=== PATIENT | male | born 1930 | race Caucasian/White ===

== ENCOUNTER 2017-09-24 12:24 | Emergency (ER) | payer OTHER ==
[2017-09-24] MEDS ORDERED: NA CHLORIDE 0.9% 1,000 ML ONE (14:14)
[2017-09-24 14:32] LABS: Absolute Lymphocytes (CBC) 0.8 K/uL (0.7-4.9); Absolute Monocytes 1.2 K/uL (0.1-1.3); Basophils % 0.4 % (0-1.3); Eosinophils % 0.6 % (0-4.4); Hematocrit 41.8 % (39.6-49.0); Lymphocytes % 5.7 % (15.3-44.8); MCH 31.5 pg (27.0-35.0); MPV 10.1 fL (7.6-11.3); Monocytes % 8.7 % (3.3-12.3); RBC Red Blood Cell Count 4.39 M/uL (4.33-5.43)
[2017-09-24 14:47] LABS: Potassium 3.7 mEq/L (3.6-5.0)
[2017-09-24] MEDS ORDERED: CEFTRIAXONE/SWI 1gm 1 GM/10 ML SYR ONE (16:14)
[2017-09-24 16:37] LABS: Urine Blood 2+ (NEG); Urine Glucose NEGATIVE (NEG); Urine Protein 2+ (NEG); Urine Specific Gravity >1.030 (1.005-1.030)
[2017-09-24 16:39] LABS: Urine Culture Reflex Order REFLEXED
[2017-09-24 16:40] LABS: Urine Bacteria >50 /HPF (NONE SEEN)
[2017-09-24 16:41] LABS: Urine RBC <5 /HPF (NONE SEEN)
--- NOTE | 2017-09-24 17:08 | EDPHYS ---
Physician Documentation [facility] Name: Jacob Houston Age: 87 yrs Sex: Male : 1930 Arrival Date: 09/24/2017 Time: 12:29 Bed 30 Private MD: ED Physician Sudheer Carreno HPI: 09/24 18:01 This 87 yrs old Male presents to ER via Ambulatory with complaints of Dysuria.gs 18:01 The patient presents with urinary symptoms, dysuria, hesitancy to initiate urine gs stream. Onset: The symptoms/episode began/occurred gradually, 4 day(s) ago. Modifying factors: The symptoms are alleviated by nothing. Associated signs and symptoms: Pertinent negatives: fever, hematuria. Severity of symptoms: At their worst the symptoms were moderate, in the emergency department the symptoms are unchanged. The patient has not experienced similar symptoms in the past. 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 - Social history:: Smoking status: Patient/guardian denies using tobacco. ROS: 18:01 All other systems are negative. gs Exam: 18:01 Head/Face: Normocephalic, atraumatic. Eyes: Pupils equal round and reactive to light, gs extra-ocular motions intact. Lids and lashes normal. Conjunctiva and sclera are non-icteric and not injected. Cornea within normal limits. Periorbital areas with no swelling, redness, or edema. ENT: Nares patent. No nasal discharge, no septal abnormalities noted. Tympanic membranes are normal and external auditory canals are clear. Oropharynx with no redness, swelling, or masses, exudates, or evidence of obstruction, uvula midline. Mucous membranes moist. Neck: Trachea midline, no thyromegaly or masses palpated, and no cervical lymphadenopathy. Supple, full range of motion without nuchal rigidity, or vertebral point tenderness. No Meningismus. Chest/axilla: Normal chest wall appearance and motion. Nontender with no deformity. No lesions are appreciated. Cardiovascular: Regular rate and rhythm with a normal S1 and S2. No gallops, murmurs, or rubs. Normal PMI, no JVD. No pulse deficits. Respiratory: Lungs have equal breath sounds bilaterally, clear to auscultation and percussion. No rales, rhonchi or wheezes noted. No increased work of breathing, no retractions or nasal flaring. Abdomen/GI: Soft, non-tender, with normal bowel sounds. No distension or tympany. No guarding or rebound. No evidence of tenderness throughout. Back: No spinal tenderness. No costovertebral tenderness. Full range of motion. Skin: Warm, dry with normal turgor. Normal color with no rashes, no lesions, and no evidence of cellulitis. MS/ Extremity: Pulses equal, no cyanosis. Neurovascular intact. Full, normal range of motion. Neuro: Awake and alert, GCS 15, oriented to person, place, time, and situation. Cranial nerves II-XII grossly intact. Motor strength 5/5 in all extremities. Sensory grossly intact. Cerebellar exam normal. Normal gait. 18:01 Constitutional: The patient appears alert, awake. Vital Signs: 12:52 BP 120 / 57; Pulse 61; Resp 15; Temp 98.3(TE); Pulse Ox 96% ; Weight 72.57 kg (R); lk1 Height 5 ft. 10 in. (177.80 cm) (R); Pain 6/10; 14:28 BP 132 / 56; Pulse 65; Resp 18; Pulse Ox 99% ; tl3 16:28 BP 135 / 67; Pulse 70; Resp 18; Pulse Ox 100% on R/A; tl3 17:44 BP 138 / 76; Pulse 68; Resp 16; Pulse Ox 99% on R/A; tl3 12:52 Body Mass Index 22.96 (72.57 kg, 177.80 cm) lk1 MDM: 14:07 Patient medically screened. 18:01 Differential diagnosis: nonspecific abdominal pain, UTI, urinary retention. Data reviewed: vital signs, nurses notes. Response to treatment: the patient's symptoms have markedly improved after treatment, and as a result, I will discharge patient. 09/24 14:05 Order name: CBC with Diff; Complete Time: 15:57 09/24 14:05 Order name: Basic Metabolic Panel; Complete Time: 15:57 09/24 14:05 Order name: Urine Microscopic Only; Complete Time: 17:07 gs 09/24 15:12 Order name: Urine Dipstick--Ancillary (enter results); Complete Time: 17:07 bd 09/24 16:42 Order name: Urine Culture [facility] 09/24 14:05 Order name: Urine Dipstick-Ancillary (obtain specimen); Complete Time: 16:11 Administered Medications: 14:16 Drug: NS 0.9% 1000 ml Route: IV; Rate: 1 bolus; Site: right forearm; Delivery: Primary tl3 tubing; 15:15 Follow up: IV Status: Completed infusion; IV Intake: 1000ml tl3 16:23 Drug: Rocephin - (cefTRIAXone) 1 grams {Note: IVP.} Route: IVPB; Infused Over: 5 mins; tl3 Site: right forearm; 16:23 Follow up: Response: No adverse reaction tl3 Disposition: 09/24/17 17:07 Discharged to Home. Impression: Cystitis. - Condition is Stable. - Discharge Instructions: Urinary Tract Infection. - Prescriptions for cefpodoxime 200 mg Oral Tablet - take 1 tablet by ORAL route every 12 hours with food; 14 tablet. - Medication Reconciliation Form, Thank You Letter, Antibiotic Education, Prescription Opioid Use form. - Follow up: Private Physician; When: 2 - 3 days; Reason: Re-evaluation by your physician. Signatures: Dispatcher [employer] Chichi Bey RN RN lk1 Sudheer Carreno MD MD gs Lowrey, Tammy, RN RN tl3 Corrections: (The following items were deleted from the chart) 17:53 17:07 09/24/2017 17:07 Discharged to Home. Impression: Cystitis. Condition is Stable. tl3 Forms are Medication Reconciliation Form, Thank You Letter, Antibiotic Education, Prescription Opioid Use. Follow up: Private Physician; When: 2 - 3 days; Reason: Re-evaluation by your physician. gs
--- NOTE | 2017-09-24 17:08 | ER ---
Nurse's Notes [facility] Emergency Department Name: Jacob Houston Age: 87 yrs Sex: Male : 1930 Arrival Date: 09/24/2017 Time: 12:29 Bed 30 Private MD: Diagnosis: Cystitis Presentation: 09/24 12:49 Presenting complaint: Patient states: It hurts bad for me to pee. It started about 3-4 lk1 days ago. Transition of care: patient was not received from another setting of care. Onset of symptoms was September 21, 2017. Initial Sepsis Screen: Does the patient have a suspected source of infection?. Care prior to arrival: None. 12:49 Method Of Arrival: Ambulatory lk1 12:49 Acuity: SHANTE 3 lk1 17:44 Initial Sepsis Screen: Does the patient meet any 2 criteria? No. Patient's initial tl3 sepsis screen is negative. Triage Assessment: 12:51 General: Appears in no apparent distress. Behavior is calm, cooperative, appropriate lk1 for age. Pain: Complains of pain in suprapubic area Pain currently is 6 out of 10 on a pain scale. : Reports burning with urination, inability to void, pain. 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 - Social history:: Smoking status: Patient/guardian denies using tobacco. Screenin:20 Abuse screen: Denies threats or abuse. Nutritional screening: No deficits noted. tl3 Tuberculosis screening: No symptoms or risk factors identified. Fall Risk None identified. Assessment: 13:20 General: Appears in no apparent distress. comfortable, slender, well groomed, well tl3 developed, well nourished, Behavior is calm, cooperative, appropriate for age. Pain: Complains of pain in abdomen and suprapubic area Pain currently is 6 out of 10 on a pain scale. Neuro: Level of Consciousness is awake, alert, obeys commands, Oriented to person, place, time, situation, Appropriate for age. Cardiovascular: Heart tones S1 S2 present. Cardiovascular: Patient's skin is warm and dry. Respiratory: Airway is patent Trachea midline Respiratory effort is even, unlabored, Respiratory pattern is regular, symmetrical. GI: No signs and/or symptoms were reported involving the gastrointestinal system. : Reports inability to void, since last 4 or 5 days very little urine output. EENT: No signs and/or symptoms were reported regarding the EENT system. Derm: No signs and/or symptoms reported regarding the dermatologic system. Musculoskeletal: No signs and/or symptoms reported regarding the musculoskeletal system. 14:30 Reassessment: Patient appears in no apparent distress at this time. No changes from tl3 previously documented assessment. Patient and/or family updated on plan of care and expected duration. Pain level reassessed. Patient is alert, oriented x 3, equal unlabored respirations, skin warm/dry/pink. family at bedside. 16:28 Reassessment: Patient appears in no apparent distress at this time. No changes from tl3 previously documented assessment. Patient and/or family updated on plan of care and expected duration. Pain level reassessed. Patient is alert, oriented x 3, equal unlabored respirations, skin warm/dry/pink. pt resting in bed, Antibiotics administered without complications, awaitiing the umic results, lab called it should be ready in 10 minutes. 17:41 Reassessment: Patient appears in no apparent distress at this time. No changes from tl3 previously documented assessment. Patient and/or family updated on plan of care and expected duration. Pain level reassessed. Patient is alert, oriented x 3, equal unlabored respirations, skin warm/dry/pink. Vital Signs: 12:52 BP 120 / 57; Pulse 61; Resp 15; Temp 98.3(TE); Pulse Ox 96% ; Weight 72.57 kg (R); lk1 Height 5 ft. 10 in. (177.80 cm) (R); Pain 6/10; 14:28 BP 132 / 56; Pulse 65; Resp 18; Pulse Ox 99% ; tl3 16:28 BP 135 / 67; Pulse 70; Resp 18; Pulse Ox 100% on R/A; tl3 17:44 BP 138 / 76; Pulse 68; Resp 16; Pulse Ox 99% on R/A; tl3 12:52 Body Mass Index 22.96 (72.57 kg, 177.80 cm) 1 ED Course: 12:29 Patient arrived in ED. sb2 12:50 Triage completed. lk1 12:54 Arm band placed on right wrist. lk1 13:13 Ynes Hernandez, RN is Primary Nurse. tl3 13:20 Resting quietly. Awaiting ED provider evaluation. tl3 13:20 Patient has correct armband on for positive identification. Placed in gown. Bed in low tl3 position. Call light in reach. Side rails up X 1. Adult w/ patient. Pulse ox on. NIBP on. Door closed. Lights dimmed. Warm blanket given. 13:20 No provider procedures requiring assistance completed. Bladder scan completed. 87 mls. tl3 13:24 Sudheer Carreno MD is Attending Physician. 13:40 Inserted saline lock: 20 gauge in right forearm, using aseptic technique. Blood tl3 collected. 17:43 intact, bleeding controlled, No redness/swelling at site. Pressure dressing applied. tl3 Administered Medications: 14:16 Drug: NS 0.9% 1000 ml Route: IV; Rate: 1 bolus; Site: right forearm; Delivery: Primary tl3 tubing; 15:15 Follow up: IV Status: Completed infusion; IV Intake: 1000ml tl3 16:23 Drug: Rocephin - (cefTRIAXone) 1 grams {Note: IVP.} Route: IVPB; Infused Over: 5 mins; tl3 Site: right forearm; 16:23 Follow up: Response: No adverse reaction tl3 Intake: 15:15 IV: 1000ml; Total: 1000ml. tl3 Outcome: 17:07 Discharge ordered by . 17:43 Discharged to home ambulatory. tl3 17:43 Condition: stable 17:43 Discharge instructions given to patient, family, Instructed on discharge instructions, follow up and referral plans. medication usage, Demonstrated understanding of instructions, follow-up care, medications, Prescriptions given X 1. 17:53 Patient left the ED. tl3 Addendum: 09/28/2017 16:09 Addendum: Culture Results: Positive urine culture. No further action required. Bacteria i w sensitive to prescribed antibiotic. Signatures: Irene Everett, RN Chichi Ledezma RN RN lk1 Sudheer Carreno MD MD Rox Umana 2 Ynes Hernandez, RN RN tl3 Corrections: (The following items were deleted from the chart) 09/24 17:52 17:41 BP 148 / 118; Pulse 99bpm; Resp 20bpm; Pulse Ox 92% 2 lpm Nasal Cannula; tl3 tl3
[2017-09-24 17:56] VITALS: TEMP 98.3
[2017-09-24 18:00] VITALS: BP 138/76; O2SAT 99
== END 2017-09-24 17:53 | disposition home or self-care (01) ==
LOC: ER 12:24
DX: N30.90 Cystitis, unspecified without hematuria (principal)
CPT/HCPCS: 36415; 80048; 85025; 87077 ×2; 87086; 87088; 87186 ×2; 96361; 96374; 99284; J0696; J7030; 81003; 81015

== ENCOUNTER 2017-11-04 11:01 | Emergency (ER) | payer OTHER ==
[2017-11-04] MEDS ORDERED: NA CHLORIDE 0.9% 500 ML ONE (11:41)
[2017-11-04 12:37] LABS: Absolute Lymphocytes (CBC) 1.1 K/uL (0.7-4.9); Absolute Monocytes 1.2 K/uL (0.1-1.3); Absolute Neutrophil 9.4 K/uL (1.8-8.0); Basophils % 0.5 % (0-1.3); Eosinophils % 1.5 % (0-4.4); MCV 95.2 fL (80-100); MPV 8.7 fL (7.6-11.3); Monocytes % 10.2 % (3.3-12.3); RBC Red Blood Cell Count 3.88 M/uL (4.33-5.43)
[2017-11-04 12:58] LABS: BUN Blood Urea Nitrogen 15 mg/dL (7-18); Bicarbonate 26 mmol/L (21-32); Glucose Level 85 mg/dL (74-106); Potassium 3.8 mmol/L (3.5-5.1); Sodium Level 140 mmol/L (136-145)
--- NOTE | 2017-11-04 13:15 | RAD REPORT ---
EXAM DESCRIPTION: US - Scrotum Testicles - 11/04/2017 12:13 pm CLINICAL HISTORY: Scrotal pain and swelling Preliminary findings provided at the time of the study. COMPARISON: None. FINDINGS: Right testicle is 4.5 x 2.5 x 2.5 cm. Volume is 14.6 milliliters. Left testicle is 3.3 x 2 .4 x 2.6 cm. Volume is 10.6 milliliters. No intratesticular abnormalities identified. Doppler evaluation shows a normal intratesticular blood flow pattern. Left epididymis is enlarged. There are numerous serpiginous prominent veins superior an d posterior to the left testicle. These veins show increased diameter and blood flow during Valsalva maneuver. No varicocele seen on the right. No hydrocele or hernia changes. IMPRESSION: Large left varicocele.
--- NOTE | 2017-11-04 14:38 | RAD REPORT ---
EXAM DESCRIPTION: US - Renal Ultrasound-Complete - 11/04/2017 2:19 pm CLINICAL HISTORY: . Abdominal pain COMPARISON: September 2016 cat scan FINDINGS: The right kidney measures 10 cm with a normal echotexture. The left kidney measures 10 cm with a normal echotexture. Hydronephrosis is not seen. A renal mass is not visualized. The bladder wall is thickened. The bladder is not well evaluated as it is incompletely distended .The patient has an enlarged prostate gland. A small amount of ascites is present IMPRESSION: Unremarkable renal ultrasound.
--- NOTE | 2017-11-04 14:42 | ER ---
Nurse's Notes [facility] Name: Jacob Houston Age: 87 yrs Sex: Male : 1930 Arrival Date: 11/04/2017 Time: 11:05 Bed 16 Private MD: Shauna Shafer F Diagnosis: Epididymitis;Scrotal varices;Enlarged prostate Presentation: 11/04 11:21 Presenting complaint: Patient states: "I woke up this morning and one of my balls is lk1 double the size it was yesterday.". Transition of care: patient was not received from another setting of care. Onset of symptoms was November 04, 2017 at 08:00. Risk Assessment: Do you want to hurt yourself or someone else? Patient reports no desire to harm self or others. Initial Sepsis Screen: Does the patient meet any 2 criteria? No. Patient's initial sepsis screen is negative. Does the patient have a suspected source of infection? No. Patient's initial sepsis screen is negative. Care prior to arrival: None. 11:21 Method Of Arrival: Ambulatory lk 11:21 Acuity: SHANTE 3 lk1 Historical: - Allergies: 11:22 No Known Allergies; lk1 - Home Meds: 11:24 Xarelto 20 mg Oral tab once daily [Active]; hj - PMHx: 11:22 DVT; lk1 - PSHx: 11:22 Appendectomy; cyst removal from elbow; Cholecystectomy; lk1 - Immunization history:: Adult Immunizations up to date. - Social history:: Smoking status: Patient/guardian denies using tobacco. - Ebola Screening: : Patient negative for fever greater than or equal to 101.5 degrees Fahrenheit, and additional compatible Ebola Virus Disease symptoms Patient denies exposure to infectious person Patient denies travel to an Ebola-affected area in the 21 days before illness onset No symptoms or risks identified at this time. - Family history:: not pertinent. - Hospitalizations: : No recent hospitalization is reported. - History obtained from: . Screenin:23 Abuse screen: Denies threats or abuse. Denies injuries from another. Nutritional hj screening: No deficits noted. Tuberculosis screening: No symptoms or risk factors identified. Fall Risk None identified. Assessment: 11:22 General: Appears in no apparent distress. uncomfortable, Behavior is calm, cooperative, hj appropriate for age. Pain: Complains of pain in pelvis. Neuro: Level of Consciousness is awake, alert, obeys commands, Oriented to person, place, time, situation, Appropriate for age. Cardiovascular: Capillary refill < 3 seconds Patient's skin is warm and dry. Respiratory: Airway is patent Respiratory effort is even, unlabored, Respiratory pattern is regular, symmetrical. GI: No signs and/or symptoms were reported involving the gastrointestinal system. : No signs and/or symptoms were reported regarding the genitourinary system. EENT: No signs and/or symptoms were reported regarding the EENT system. Derm: Reports testicular swelling. Musculoskeletal: No signs and/or symptoms reported regarding the musculoskeletal system. 11:35 Reassessment: wheeled to US;. hj 12:00 Reassessment: back from Us;. hj 12:30 Reassessment: Patient and/or family updated on plan of care and expected duration. Pain hj level reassessed. Patient is alert, oriented x 3, equal unlabored respirations, skin warm/dry/pink. awaiting resuls;. 13:50 Reassessment: Patient and/or family updated on plan of care and expected duration. Pain hj level reassessed. Patient is alert, oriented x 3, equal unlabored respirations, skin warm/dry/pink. RP US done;. 14:44 Reassessment: Patient and/or family updated on plan of care and expected duration. Pain hj level reassessed. Patient is alert, oriented x 3, equal unlabored respirations, skin warm/dry/pink. for D/C;l. Vital Signs: 11:22 BP 136 / 56; Pulse 62; Resp 15; Temp 99.2(TE); Pulse Ox 95% on R/A; Weight 72.57 kg lk1 (R); Height 5 ft. 11 in. (180.34 cm) (R); Pain 5/10; 11:31 BP 123 / 61; Pulse 60; Resp 18; Pulse Ox 96% on R/A; hj 12:30 BP 138 / 60; Pulse 67; Resp 18; Pulse Ox 99% ; hj 13:50 BP 140 / 60; Pulse 69; Resp 18; Pulse Ox 100% on R/A; hj 14:44 BP 136 / 62; Pulse 71; Resp 18; Pulse Ox 100% on R/A; hj 11:22 Body Mass Index 22.32 (72.57 kg, 180.34 cm) lk1 ED Course: 11:05 Patient arrived in ED. mr 11:05 Shauna Shafer MD is Private Physician. mr 11:13 Kemal Marion, RN is Primary Nurse. hj 11:22 Triage completed. lk1 11:23 Arm band placed on left wrist. lk1 11:23 Patient has correct armband on for positive identification. Placed in gown. Bed in low hj position. Call light in reach. Side rails up X 1. Adult w/ patient. 11:29 Aleja Berrios FNP is PHCP. kav 11:29 Vadim Dumont MD is Attending Physician. kav 11:51 US Scrotum Testicles: left testicular swelling and erythema x 1 day In Process EDMS Unspecified. 12:31 Initial lab(s) drawn, by in, sent to lab. Inserted saline lock: 20 gauge in left dh3 antecubital area, using aseptic technique. Blood collected. 14:02 US Rp Exam Complete In Process Unspecified. EDMS 14:03 Ultrasound completed. Patient tolerated well. aa4 14:41 Shauna Shafer MD is Referral Physician. kav 14:43 Demetrius Alexander MD is Referral Physician. kav 14:45 No provider procedures requiring assistance completed. IV discontinued, intact, hj bleeding controlled, No redness/swelling at site. Pressure dressing applied. Administered Medications: 12:31 Drug: NS 0.9% 500 ml Route: IV; Rate: bolus; Site: left antecubital; hj 14:44 Follow up: IV Status: Completed infusion hj Outcome: 14:42 Discharge ordered by . kav 14:45 Discharged to home ambulatory, with family. hj 14:45 Condition: stable 14:45 Discharge instructions given to patient, family, Instructed on discharge instructions, follow up and referral plans. medication usage, Demonstrated understanding of instructions, follow-up care, medications, Prescriptions given X 1. 14:56 Patient left the ED. hj Signatures: Dispatcher [employer] EDMS Aleja Berrios FNP SENIOR STATISTICIANYuni Sher mr Mars Amanda aa4 Kemal Marion RN RN hj Kluge, Leah, RN RN lk Yoana Ardon [facility]
--- NOTE | 2017-11-04 14:42 | EDPHYS ---
Physician Documentation [facility] Name: Jacob Houston Age: 87 yrs Sex: Male : 1930 Arrival Date: 11/04/2017 Time: 11:05 Bed 16 Private MD: Shauna Shafer F ED Physician Vadim Dumont HPI: 11/04 11:32 This 87 yrs old Male presents to ER via Ambulatory with complaints of Penile kav Problem. 11:49 The patient presents with tenderness, that is mild, left testicle. Onset: The kav symptoms/episode began/occurred acutely, last night. Modifying factors: The symptoms are alleviated by remaining still, the symptoms are aggravated by movement, pressure. Associated signs and symptoms: Pertinent negatives: abdominal pain, dysuria, hematuria, nausea, vomiting. Severity of symptoms: At their worst the symptoms were moderate, just prior to arrival. The patient has not experienced similar symptoms in the past. The patient has not recently seen a physician. 13:41 Review of old medical record from 09/24/17 shows patient seen in this ED with similar kav c/o's and was diagnosed with a CystitisI and RX: Cefpodoxime 200 mg bid x 7 days. Historical: - Allergies: 11:22 No Known Allergies; lk1 - Home Meds: 11:24 Xarelto 20 mg Oral tab once daily [Active]; hj - PMHx: 11:22 DVT; lk1 - PSHx: 11:22 Appendectomy; cyst removal from elbow; Cholecystectomy; lk1 - Immunization history:: Adult Immunizations up to date. - Social history:: Smoking status: Patient/guardian denies using tobacco. - Ebola Screening: : Patient negative for fever greater than or equal to 101.5 degrees Fahrenheit, and additional compatible Ebola Virus Disease symptoms Patient denies exposure to infectious person Patient denies travel to an Ebola-affected area in the 21 days before illness onset No symptoms or risks identified at this time. - Family history:: not pertinent. - Hospitalizations: : No recent hospitalization is reported. - History obtained from: . ROS: 11:51 Constitutional: Negative for fever, chills, and weight loss, Eyes: Negative for injury, kav pain, redness, and discharge, ENT: Negative for injury, pain, and discharge, Neck: Negative for injury, pain, and swelling, Cardiovascular: Negative for chest pain, palpitations, and edema, Respiratory: Negative for shortness of breath, cough, wheezing, and pleuritic chest pain, Abdomen/GI: Negative for abdominal pain, nausea, vomiting, diarrhea, and constipation, Back: Negative for injury and pain, MS/Extremity: Negative for injury and deformity, Skin: Negative for injury, rash, and discoloration, Neuro: Negative for headache, weakness, numbness, tingling, and seizure, Psych: Negative for depression, anxiety, suicide ideation, homicidal ideation, and hallucinations, Allergy/Immunology: Negative for hives, rash, and allergies, Endocrine: Negative for neck swelling, polydipsia, polyuria, polyphagia, and marked weight changes, Hematologic/Lymphatic: Negative for swollen nodes, abnormal bleeding, and unusual bruising. 11:51 : Positive for testicular pain Left testicle, Negative for injury or acute deformity, urinary symptoms. Exam: 11:51 Constitutional: This is a well developed, well nourished patient who is awake, alert, kav and in no acute distress. Head/Face: Normocephalic, atraumatic. Eyes: Pupils equal round and reactive to light, extra-ocular motions intact. Lids and lashes normal. Conjunctiva and sclera are non-icteric and not injected. Cornea within normal limits. Periorbital areas with no swelling, redness, or edema. ENT: Nares patent. No nasal discharge, no septal abnormalities noted. Tympanic membranes are normal and external auditory canals are clear. Oropharynx with no redness, swelling, or masses, exudates, or evidence of obstruction, uvula midline. Mucous membranes moist. Neck: Trachea midline, no thyromegaly or masses palpated, and no cervical lymphadenopathy. Supple, full range of motion without nuchal rigidity, or vertebral point tenderness. No Meningismus. Chest/axilla: Normal chest wall appearance and motion. Nontender with no deformity. No lesions are appreciated. Cardiovascular: Regular rate and rhythm with a normal S1 and S2. No gallops, murmurs, or rubs. Normal PMI, no JVD. No pulse deficits. Respiratory: Lungs have equal breath sounds bilaterally, clear to auscultation and percussion. No rales, rhonchi or wheezes noted. No increased work of breathing, no retractions or nasal flaring. Abdomen/GI: Soft, non-tender, with normal bowel sounds. No distension or tympany. No guarding or rebound. No evidence of tenderness throughout. Back: No spinal tenderness. No costovertebral tenderness. Full range of motion. Skin: Warm, dry with normal turgor. Normal color with no rashes, no lesions, and no evidence of cellulitis. MS/ Extremity: Pulses equal, no cyanosis. Neurovascular intact. Full, normal range of motion. Neuro: Awake and alert, GCS 15, oriented to person, place, time, and situation. Cranial nerves II-XII grossly intact. Motor strength 5/5 in all extremities. Sensory grossly intact. Cerebellar exam normal. Normal gait. Psych: Awake, alert, with orientation to person, place and time. Behavior, mood, and affect are within normal limits. 11:51 : Male external genitalia: swelling, of the left testicle is noted, tenderness, of the left testicle is noted, that is moderate. Vital Signs: 11:22 BP 136 / 56; Pulse 62; Resp 15; Temp 99.2(TE); Pulse Ox 95% on R/A; Weight 72.57 kg lk1 (R); Height 5 ft. 11 in. (180.34 cm) (R); Pain 5/10; 11:31 BP 123 / 61; Pulse 60; Resp 18; Pulse Ox 96% on R/A; hj 12:30 BP 138 / 60; Pulse 67; Resp 18; Pulse Ox 99% ; hj 13:50 BP 140 / 60; Pulse 69; Resp 18; Pulse Ox 100% on R/A; hj 14:44 BP 136 / 62; Pulse 71; Resp 18; Pulse Ox 100% on R/A; hj 11:22 Body Mass Index 22.32 (72.57 kg, 180.34 cm) lk1 MDM: 11:29 Medical screening is not applicable. [facility] 13:29 Differential diagnosis: prostatitis, Epididymitis vs. Orchitis vs. Varicocele vs. Renal kav Tumor vs. Spermatic Vein Occlusion. Data reviewed: vital signs, nurses notes, radiologic studies, ultrasound. 14:41 Data reviewed: radiologic studies, ultrasound, Renal US: Enlarged Prostate. [facility] 11/04 11:37 Order name: Basic Metabolic Panel; Complete Time: 13:15 [facility] 11/04 13:15 Interpretation: CA 8.3. [facility] 11/04 11:37 Order name: CBC with Diff; Complete Time: 13:17 [facility] 11/04 13:18 Interpretation: WBC 11.9; RBC 3.88; HGB 12.0; HCT 37.0; ALTA% 78.8; LYM% 9.0; NEUT A 9.4.[facility] 11/04 11:36 Order name: US Scrotum Testicles: left testicular swelling and erythema x 1 day; [facility] Complete Time: 13:18 11/04 13:20 Interpretation: No acute disease except: Enlarged left epididymis and varioceoel. [facility] 11/04 11:37 Order name: IV Saline Lock; Complete Time: 12:31 [facility] 11/04 13:26 Order name: US Rp Exam Complete; Complete Time: 14:40 [facility] 11/04 14:40 Interpretation: Enlarged prostate gland. [facility] 11/04 11:37 Order name: Labs collected and sent; Complete Time: 12:31 [facility] Administered Medications: 12:31 Drug: NS 0.9% 500 ml Route: IV; Rate: bolus; Site: left antecubital; 14:44 Follow up: IV Status: Completed infusion hj Disposition: 11/04/17 14:42 Discharged to Home. Impression: Epididymitis, Scrotal varices, Enlarged prostate. - Condition is Stable. - Discharge Instructions: Benign Prostatic Hypertrophy, Epididymitis, Scrotal Swelling. - Prescriptions for Levaquin 500 mg Oral Tablet - take 1 tablet by ORAL route once daily for 7 days; 7 tablet. - Medication Reconciliation Form, Thank You Letter, Antibiotic Education, Prescription Opioid Use form. - Follow up: Shauna Shafer; When: 5 - 6 days; Reason: Recheck today's complaints, Continuance of care, Re-evaluation by your physician. Follow up: Demetrius Alexander MD; When: 7 - 10 days; Reason: Recheck today's complaints, Continuance of care, Re-evaluation by your physician. - Problem is new. - Symptoms have improved. Addendum: 11/11/2017 11:23 Co-signature as Attending Physician, Vadim Dumont MD I agree with the assessment and k dr plan of care. Signatures: Dispatcher [employer] EDOK Vadim Dumont MD MD kdr Vern, Katherine, FNP TREATING MACHINE OPERATOR [facility] Kemal Marion, RN RN Chichi Arnold, RN RN lk1 Corrections: (The following items were deleted from the chart) 11/04 13:17 13:15 Within normal limits: CA 8.3. [facility] 13:18 13:17 WBC 11.9; RBC 3.88; HGB 12.0; HCT 37.0. [facility] 14:41 11:37 Urine Dipstick-Ancillary ordered. [facility] 14:43 14:42 11/04/2017 14:42 Discharged to Home. Impression: Epididymitis; Scrotal varices; kav Enlarged prostate. Condition is Stable. Discharge Instructions: Epididymitis, Scrotal Swelling. Prescriptions for Levaquin 500 mg Oral Tablet - take 1 tablet by ORAL route once daily for 7 days; 7 tablet. and Forms are Medication Reconciliation Form, Thank You Letter, Antibiotic Education, Prescription Opioid Use. Follow up: Shauna Shafer; When: 5 - 6 days; Reason: Recheck today's complaints, Continuance of care, Re-evaluation by your physician. Problem is new. Symptoms have improved. [facility] 14:45 14:40 No acute disease: Enlarged prostate gland. [facility] 14:56 14:43 11/04/2017 14:42 Discharged to Home. Impression: Epididymitis; Scrotal varices; hj Enlarged prostate. Condition is Stable. Discharge Instructions: Epididymitis, Scrotal Swelling, Benign Prostatic Hypertrophy. Prescriptions for Levaquin 500 mg Oral Tablet - take 1 tablet by ORAL route once daily for 7 days; 7 tablet. and Forms are Medication Reconciliation Form, Thank You Letter, Antibiotic Education, Prescription Opioid Use. Follow up: Shauna Shafer; When: 5 - 6 days; Reason: Recheck today's complaints, Continuance of care, Re-evaluation by your physician. Follow up: Demetrius Alexander; When: 7 - 10 days; Reason: Recheck today's complaints, Continuance of care, Re-evaluation by your physician. Problem is new. Symptoms have improved. kav
[2017-11-04 14:59] VITALS: TEMP 99.2
[2017-11-04 15:02] VITALS: O2SAT 100
[2017-11-04 15:04] VITALS: BP 136/62
== END 2017-11-04 14:56 | disposition home or self-care (01) ==
LOC: ER 11:01
DX: N45.1 Epididymitis (principal); I86.1 Scrotal varices; N40.0 Benign prostatic hyperplasia without lower urinary tract symptoms
CPT/HCPCS: 36415; 76770; 76870; 80048; 85025; 96360; 96361; 99284

== ENCOUNTER 2017-12-10 00:35 | Emergency (ER) | payer OTHER ==
[2017-12-10 01:42] LABS: Urine Blood 2+ (NEG); Urine Glucose NEGATIVE (NEG); Urine Protein 1+ (NEG)
[2017-12-10 02:02] LABS: Urine Amorphous Sediment 4+ /HPF (NONE SEEN); Urine Bacteria <20 /HPF (NONE SEEN); Urine Culture Reflex Order REFLEXED; Urine RBC <5 /HPF (NONE SEEN)
--- NOTE | 2017-12-10 02:07 | ER ---
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 swelling returned today. pt taking unknown medications for swelling in testicles. Transition of care: patient was not received from another setting of care. Onset of symptoms was December 09, 2017. Risk Assessment: Do you want to hurt yourself or someone else? Patient reports no desire to harm self or others. Initial Sepsis Screen: Does the patient meet any 2 criteria? No. Patient's initial sepsis screen is negative. Does the patient have a suspected source of infection? No. Patient's initial sepsis screen is negative. Care prior to arrival: None. 00:46 Method Of Arrival: Ambulatory ak1 00:46 Acuity: SHANTE 3 ak1 Triage Assessment: 00:48 General: Appears in no apparent distress. Behavior is calm, cooperative. Pain: ak1 Complains of pain in groin. EENT: No signs and/or symptoms were reported regarding the EENT system. Neuro: No deficits noted. Cardiovascular: No deficits noted. Respiratory: No deficits noted. GI: No signs and/or symptoms were reported involving the gastrointestinal system. : Reports pain scrotum, testicle. Derm: No signs and/or symptoms reported regarding the dermatologic system. Musculoskeletal: No signs and/or symptoms reported regarding the musculoskeletal system. Historical: - Allergies: 00:48 No Known Allergies; ak1 - Home Meds: 00:48 Xarelto 20 mg Oral tab once daily [Active]; ak1 - PMHx: 00:48 DVT; ak1 - PSHx: 00:48 Appendectomy; Cholecystectomy; cyst removal from elbow; ak1 - Immunization history:: Adult Immunizations unknown. - Social history:: Smoking status: Patient/guardian denies using tobacco. - Ebola Screening: : No symptoms or risks identified at this time. Screenin:50 Abuse screen: Denies threats or abuse. Denies injuries from another. Nutritional ak1 screening: No deficits noted. Tuberculosis screening: No symptoms or risk factors identified. Fall Risk None identified. Assessment: 00:55 General: Appears uncomfortable, slender. Pain: Complains of pain in groin Pain does not jl3 radiate. Pain: Pain currently is 8 out of 10 on a pain scale. Quality of pain is described as crampy, sharp, Pain began 4 hours ago. States pain increased throughout the day. States was in ER recently, send home with consult to Dr. Alexander. Saw Dr. Alexander and received Rx but does not remember name of the med. Respiratory: No deficits noted. : on scrotum Scrotum swollen bilaterally. Pt states is both testicles. R. appears larger than L. Derm:. Vital Signs: 00:48 BP 153 / 74; Pulse 73; Resp 18; Temp 98.5(O); Pulse Ox 98% on R/A; Weight 76.66 kg (R); ak1 Height 6 ft. 0 in. (182.88 cm) (R); Pain 6/10; 01:52 BP 149 / 69; Pulse 71; Pulse Ox 97% ; jl3 02:41 BP 151 / 72; Pulse 78; Resp 18; Pulse Ox 97% ; Pain 0/10; jl3 00:48 Body Mass Index 22.92 (76.66 kg, 182.88 cm) ak1 ED Course: 00:36 Patient arrived in ED. es 00:36 Shauna Shafer MD is Private Physician. es 00:40 Hema Spencer LVN is Primary Nurse. jl3 00:43 Curry Strong NP is PHCP. pm1 00:43 Linwood Hamilton MD is Attending Physician. pm1 00:47 Triage completed. ak1 00:48 Arm band placed on Patient placed in an exam room, on a stretcher, on pulse oximetry, ak1 Patient notified of wait time. 00:50 Patient has correct armband on for positive identification. Placed in gown. Bed in low ak1 position. Call light in reach. Pulse ox on. NIBP on. 01:24 Urine collected: clean catch specimen, cloudy. cb2 01:40 Ultrasound completed. Patient tolerated well. aa4 01:41 US Scrotum Testicles In Process Unspecified. EDMS 02:07 Demetrius Alexander MD is Referral Physician. pm1 02:42 No provider procedures requiring assistance completed. Patient did not have IV access jl3 during this emergency room visit. Administered Medications: 02:13 Drug: Rocephin (cefTRIAXone) 1 grams Route: IM; Site: right gluteus; jl3 02:40 Follow up: Response: No adverse reaction jl3 02:13 Drug: [place] 5 mg-325 mg 1 tabs Route: PO; jl3 02:40 Follow up: Response: No adverse reaction; Pain is decreased jl3 Outcome: 02:07 Discharge ordered by MD. pm1 02:42 Discharged to home ambulatory, with family. jl3 02:42 Condition: stable 02:42 Discharge instructions given to patient, family. 02:43 Patient left the ED. jl3 Addendum: 12/13/2017 08:01 Addendum: Culture Results: Positive urine culture. No further action required. Bacteria s s sensitive to prescribed antibiotic. Signatures: Dispatcher [employer] EDMS Tabby Wagner Amanda aa4 Yue Bowman, SALVADOR RN ss Hema Spencer, ARMINDA SLIP FEEDER jl3 Brooke Perera RN RN ak1 Curry Strong, TELESCOPE REPAIRER TELESCOPE REPAIRER pm1 Zander Joe cb2
--- NOTE | 2017-12-10 02:07 | EDPHYS ---
Physician Documentation [facility] Name: Jacob Houston Age: 87 yrs Sex: Male : 1930 Arrival Date: 12/10/2017 Time: 00:36 Bed 16 Private MD: Shauna Shafer F ED Physician Linwood Hamilton HPI: 12/10 02:13 This 87 yrs old Male presents to ER via Ambulatory with complaints of pm1 Testicular Problem. 02:38 The patient presents with scrotal pain, of both sides, in the area of the epidydimis, pm1 with swelling, swelling, of the scrotum. Onset: The symptoms/episode began/occurred today. Modifying factors: The symptoms are alleviated by nothing, the symptoms are aggravated by nothing. Associated signs and symptoms: Pertinent positives: some burning with urination, Pertinent negatives: abdominal pain, fever, hematuria. Severity of symptoms: in the emergency department the symptoms are actually worse. The patient has experienced similar episodes in the past, a few times. The patient has been recently seen by a physician: Dr. Alexander 2 day(s) ago, with similar presenting complaints, was given a prescription for antibiotics, but patient and family do not recall the name of the medication. Historical: - Allergies: 00:48 No Known Allergies; ak1 - Home Meds: 00:48 Xarelto 20 mg Oral tab once daily [Active]; ak1 - PMHx: 00:48 DVT; ak1 - PSHx: 00:48 Appendectomy; Cholecystectomy; cyst removal from elbow; ak1 - Immunization history:: Adult Immunizations unknown. - Social history:: Smoking status: Patient/guardian denies using tobacco. - Ebola Screening: : No symptoms or risks identified at this time. ROS: 02:38 Constitutional: Negative for fever, chills, and weight loss, Eyes: Negative for injury, pm1 pain, redness, and discharge, ENT: Negative for injury, pain, and discharge, Neck: Negative for injury, pain, and swelling, Cardiovascular: Negative for chest pain, palpitations, and edema, Respiratory: Negative for shortness of breath, cough, wheezing, and pleuritic chest pain, Abdomen/GI: Negative for abdominal pain, nausea, vomiting, diarrhea, and constipation, Back: Negative for injury and pain. 02:38 MS/Extremity: Negative for injury and deformity, Skin: Negative for injury, rash, and discoloration. 02:38 Neuro: Negative for headache, weakness, numbness, tingling, and seizure. 02:38 : Positive for testicular pain scrotal swelling. Exam: 02:38 Constitutional: This is a well developed, well nourished patient who is awake, alert, pm1 and in no acute distress. Head/Face: Normocephalic, atraumatic. Chest/axilla: Normal chest wall appearance and motion. Nontender with no deformity. No lesions are appreciated. Cardiovascular: Regular rate and rhythm with a normal S1 and S2. No gallops, murmurs, or rubs. Normal PMI, no JVD. No pulse deficits. Respiratory: Lungs have equal breath sounds bilaterally, clear to auscultation and percussion. No rales, rhonchi or wheezes noted. No increased work of breathing, no retractions or nasal flaring. Abdomen/GI: Soft, non-tender, with normal bowel sounds. No distension or tympany. No guarding or rebound. No evidence of tenderness throughout. Back: No spinal tenderness. No costovertebral tenderness. Full range of motion. 02:38 Skin: Warm, dry with normal turgor. Normal color with no rashes, no lesions, and no evidence of cellulitis. MS/ Extremity: Pulses equal, no cyanosis. Neurovascular intact. Full, normal range of motion. 02:38 : Male external genitalia: swelling, scrotal, of the epididymis area, that is moderate, tenderness, of the epididymis area. 02:38 Neuro: Orientation: is normal, Motor: moves all fours, Gait: is steady, at a normal pace, without difficulty. Vital Signs: 00:48 BP 153 / 74; Pulse 73; Resp 18; Temp 98.5(O); Pulse Ox 98% on R/A; Weight 76.66 kg (R); ak1 Height 6 ft. 0 in. (182.88 cm) (R); Pain 6/10; 01:52 BP 149 / 69; Pulse 71; Pulse Ox 97% ; jl3 02:41 BP 151 / 72; Pulse 78; Resp 18; Pulse Ox 97% ; Pain 0/10; jl3 00:48 Body Mass Index 22.92 (76.66 kg, 182.88 cm) ak1 MDM: 00:49 Patient medically screened. pm1 01:57 Data reviewed: vital signs. Data interpreted: Pulse oximetry: on room air is 97 %. pm1 Interpretation: normal. Counseling: I had a detailed discussion with the patient and/or guardian regarding: the historical points, exam findings, and any diagnostic results supporting the discharge/admit diagnosis, lab results, radiology results, the need for outpatient follow up, for definitive care, a urologist, to return to the emergency department if symptoms worsen or persist or if there are any questions or concerns that arise at home. 02:13 ED course: Patient taking an abx medication every [address] Alexander 2 pm1 days ago. Patient refused pain medication in the ER and does not want a prescription because he says he is not having any pain. 12/10 00:54 Order name: Urine Microscopic Only; Complete Time: 02:07 pm1 12/10 01:27 Order name: Urine Dipstick--Ancillary (enter results); Complete Time: 01:47 ms 12/10 00:53 Order name: US Scrotum Testicles pm1 12/10 02:03 Order name: Urine Culture EDNC 12/10 00:54 Order name: Urine Dipstick-Ancillary (obtain specimen); Complete Time: 01:25 pm1 Administered Medications: 02:13 Drug: Rocephin (cefTRIAXone) 1 grams Route: IM; Site: right gluteus; jl3 02:40 Follow up: Response: No adverse reaction jl3 02:13 Drug: [place] 5 mg-325 mg 1 tabs Route: PO; jl3 02:40 Follow up: Response: No adverse reaction; Pain is decreased jl3 Disposition: 07:27 Co-signature as Attending Physician, Linwood Hamilton MD I agree with the assessment and levy plan of care. Disposition: 12/10/17 02:07 Discharged to Home. Impression: Epididymitis, Scrotal varices. - Condition is Stable. - Discharge Instructions: Epididymitis, Varicocele. - Prescriptions for Bactrim DS 800- 160 mg Oral Tablet - take 1 tablet by ORAL route every 12 hours for 10 days; 20 tablet. Tylenol- Codeine #3 300-30 mg Oral Tablet - take 2 tablets by ORAL route every 6 hours As needed; 20 tablet. - Medication Reconciliation Form, Thank You Letter, Antibiotic Education, Prescription Opioid Use form. - Follow up: Emergency Department; When: As needed; Reason: Worsening of condition. Follow up: Demetrius Alexander MD; When: 2 - 3 days; Reason: Recheck today's complaints, Continuance of care, Re-evaluation by your physician. - Problem is new. - Symptoms have improved. Signatures: Dispatcher [employer] EDNC Linwood Hamilton MD MD cha Lowman, John, ENGINEERING OPERATOR ENGINEERING OPERATOR jl3 Brooke Perera RN RN ak1 Curry Strong, CAR MANAGER CAR MANAGER pm1 Corrections: (The following items were deleted from the chart) 02:07 02:07 12/10/2017 02:07 Discharged to Home. Impression: Epididymitis; Scrotal varices. pm1 Condition is Stable. Forms are Medication Reconciliation Form, Thank You Letter, Antibiotic Education, Prescription Opioid Use. pm1 02:43 02:07 12/10/2017 02:07 Discharged to Home. Impression: Epididymitis; Scrotal varices. jl3 Condition is Stable. Forms are Medication Reconciliation Form, Thank You Letter, Antibiotic Education, Prescription Opioid Use. Follow up: Emergency Department; When: As needed; Reason: Worsening of condition. Follow up: Demetrius Alexander; When: 2 - 3 days; Reason: Recheck today's complaints, Continuance of care, Re-evaluation by your physician. Problem is new. Symptoms have improved. pm1
[2017-12-10] MEDS ORDERED: HYDROCODONE/APAP 5/325 MG TAB ONE (02:14)
[2017-12-10] MEDS ORDERED: CEFTRIAXONE 1000 MG/VIAL ONE (02:15)
[2017-12-10 02:46] VITALS: TEMP 98.5
[2017-12-10 02:48] VITALS: O2SAT 97
[2017-12-10 02:49] VITALS: BP 151/72
--- NOTE | 2017-12-10 13:06 | RAD REPORT ---
EXAM DESCRIPTION: US - Scrotum Testicles - 12/10/2017 1:43 am CLINICAL HISTORY: Testicular pain and swelling FINDINGS: The right testicle measures 3.9 x 2.7 x 2.7 centimeters the echotexture is mildly inhomoge neous. The left testicle measures 2.8 x 2 x 3 centimeters. The echotexture is mildly inhomogeneous. Increased blood flow is present to each epididymis. The epididymides are enlarged and hypoechoic . A 15 millimeter heterogeneous structure is present within the left epididymis containing some fluid Scrotal skin thickening is seen. A a small to moderate right hydrocele is present. IMPRESSION: Bilateral epididymitis 15 millimeter heterogeneous mass within the left epididymis may be inflammatory in nature. An abscess is another consideration. If the patient's symptoms do not improve after several days of antibiotic treatment follow up ultrasound would be recommended for re-evaluation
== END 2017-12-10 02:43 | disposition home or self-care (01) ==
LOC: ER 00:35
DX: N45.1 Epididymitis (principal); I86.1 Scrotal varices; Z79.01 Long term (current) use of anticoagulants; Z86.718 Personal history of other venous thrombosis and embolism
CPT/HCPCS: 76870; 81003; 81015; 87077; 87086; 87088; 87186; 96372; 99284

== ENCOUNTER 2018-11-18 21:53 | Emergency (ER) | payer OTHER ==
[2018-11-18 22:36] LABS: Absolute Lymphocytes (CBC) 1.3 K/uL (0.7-4.9); Basophils % 0.7 % (0-1.3); Eosinophils % 4.1 % (0-4.4); Hematocrit 37.5 % (39.6-49.0); Lymphocytes % 20.4 % (15.3-44.8); MPV 9.4 fL (7.6-11.3); Monocytes % 10.9 % (3.3-12.3); RBC Red Blood Cell Count 3.83 M/uL (4.33-5.43)
[2018-11-18 22:50] LABS: Potassium 3.6 mmol/L (3.5-5.1)
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
[2018-11-19 02:06] VITALS: O2SAT 98
[2018-11-19 02:08] VITALS: BP 160/80
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
== END 2018-11-19 01:51 | disposition home or self-care (01) ==
LOC: ER 21:53
DX: S13.4XXA Sprain of ligaments of cervical spine, initial encounter (principal); S20.229A Contusion of unspecified back wall of thorax, initial encounter; V49.50XA Passenger injured in collision with unspecified motor vehicles in traffic accident, initial encounter; F03.90 Unspecified dementia, unspecified severity, without behavioral disturbance, psychotic disturbance, mood disturbance, and anxiety; Z79.01 Long term (current) use of anticoagulants; Z86.718 Personal history of other venous thrombosis and embolism
CPT/HCPCS: 85025; 80048; 36415; 70450; 72125; 71260; 74177; 99285; Q9967

== ENCOUNTER 2019-06-17 00:49 | Inpatient (IN) | payer OTHER ==
[2019-06-17] MEDS ORDERED: LORazepam 2 MG/ML VIAL ONE (01:51)
[2019-06-17] MEDS ORDERED: NA CHLORIDE 0.9% 1,000 ML ONE (01:51)
[2019-06-17] MEDS ORDERED: CEFTRIAXONE/SWI 1gm 1 GM/10 ML SYR ONE (01:51)
[2019-06-17] MEDS ORDERED: ACETAMINOPHEN 325 MG TABLET ONE (01:52)
[2019-06-17 01:56] LABS: Absolute Lymphocytes (CBC) 0.2 K/uL (0.7-4.9); Basophils % 0.1 % (0-1.3); Hematocrit 35.3 % (39.6-49.0); Lymphocytes % 1.3 % (15.3-44.8)
[2019-06-17 01:59] LABS: Protime INR 1.3
[2019-06-17 02:17] LABS: Albumin 3.3 g/dL (3.4-5.0); Bilirubin Direct 0.3 mg/dL (0-0.2); Bilirubin Total 0.9 mg/dL (0.2-1.0); Potassium 3.6 mmol/L (3.5-5.1); Protein, Total 6.7 g/dL (6.4-8.2); Troponin (Emerg Dept Use Only) 0.05 ng/mL (0.0-0.045)
--- NOTE | 2019-06-17 02:26 | ER ---
Nurse's Notes [facility] Name: Jacob Houston Age: 89 yrs Sex: Male : 1930 Arrival Date: 06/17/2019 Time: 00:53 Bed 3 Private MD: Diagnosis: Fever, unspecified;Altered mental status, unspecified;Dementia in other diseases classified elsewhere;Other pneumonia, unspecified organism;Elevated white blood cell count, unspecified;Urinary tract infection, site not specified Presentation: 06/17 00:55 Presenting complaint: EMS states: called by patients . running naked all around the rr5 house,pee on the floor incontinence. the cannot control him. patient known case of Alzheimer's disease. 00:55 Transition of care: patient was not received from another setting of care. Onset of rr5 symptoms was June 17, 2019. Risk Assessment: Do you want to hurt yourself or someone else? Unable to obtain. Initial Sepsis Screen: Does the patient meet any 2 criteria? No. Patient's initial sepsis screen is negative. Does the patient have a suspected source of infection? No. Patient's initial sepsis screen is negative. Care prior to arrival: None. 00:55 Method Of Arrival: EMS: [facility] rr5 00:55 Acuity: SHANTE 3 rr5 Historical: - Allergies: 01:00 No Known Allergies; rr5 - Home Meds: 01:00 Xarelto Oral [Active]; Bp medication cannot recall the name [Active]; rr5 - PMHx: 01:00 Dementia; DVT; Alzheimers; Hypertension; rr5 - PSHx: 01:00 Unable to obtain; rr5 - Immunization history:: Adult Immunizations up to date. - Coronavirus screen:: The patient has NOT traveled to [place], [place], or [place] in the past 14 days. - Social history:: Smoking status: unknown Patient uses alcohol, occasionally. Patient/guardian denies using street drugs. - Family history:: not pertinent. - Ebola Screening: : Patient negative for fever greater than or equal to 101.5 degrees Fahrenheit, and additional compatible Ebola Virus Disease symptoms Patient denies exposure to infectious person Patient denies travel to an Ebola-affected area in the 21 days before illness onset. Screenin:10 Abuse screen: Denies threats or abuse. Denies injuries from another. Nutritional rr5 screening: No deficits noted. Tuberculosis screening: No symptoms or risk factors identified. Fall Risk Secondary diagnosis (15 points) seizures, dementia, IV access (20 points). Gait- Weak (10 pts.). Mental Status- Overestimates/Forgets Limitations (15 pts.). Total Cheek Fall Scale indicates High Risk Score (45 or more points). Fall prevention measures have been instituted. Side Rails Up X 2 Placed Close to Nursing Station Frequent Obs/Assessments Occuring Family Present and informed to notify staff if the need to leave the bedside As available patient and family educated on Fall Prevention Program and Strategies. Assessment: 01:00 General: Appears uncomfortable, Behavior is uncooperative, getting out on bed. rr5 01:00 Pain: Unable to use pain scale. Patient is disoriented. Neuro: Level of Consciousness rr5 is awake, confused, Oriented to none. Cardiovascular: Capillary refill < 3 seconds Patient's skin is warm and dry. Respiratory: Airway is patent Respiratory effort is even, unlabored, Respiratory pattern is regular, symmetrical. GI: No signs and/or symptoms were reported involving the gastrointestinal system. : No signs and/or symptoms were reported regarding the genitourinary system. EENT: No signs and/or symptoms were reported regarding the EENT system. Derm: Skin is intact, is healthy with good turgor, Skin temperature is warm. Musculoskeletal: Capillary refill < 3 seconds. 02:05 Reassessment: Patient appears in no apparent distress at this time. Patient and/or rr5 family updated on plan of care and expected duration. Pain level reassessed. awaiting for results. patient getting out on bed ED provider aware with order made and carried out. 03:00 Reassessment: Patient appears in no apparent distress at this time. resting on bed eyes rr5 closed breathing spontaneously at room air. for transfer to room 402. 03:25 Reassessment: patient woke up stand at the side of the bed pass urine with assistance. rr5 Vital Signs: 01:00 BP 140 / 46; Pulse 85; Resp 20; Temp 99.3; Pulse Ox 99% ; Weight 81.65 kg; Height 6 ft. rr5 0 in. (182.88 cm); 02:00 BP 142 / 70; Pulse 115; Resp 25; Temp 99.5; Pulse Ox 95% ; rr5 03:05 BP 138 / 72; Pulse 106; Resp 21; Temp 100; Pulse Ox 96% ; rr5 01:00 Body Mass Index 24.41 (81.65 kg, 182.88 cm) rr5 [place] Coma Score: 01:00 Eye Response: spontaneous(4). Verbal Response: confused(4). Motor Response: obeys rr5 commands(6). Total: 14. 02:00 Eye Response: spontaneous(4). Verbal Response: confused(4). Motor Response: obeys rr5 commands(6). Total: 14. 03:00 Eye Response: spontaneous(4). Verbal Response: confused(4). Motor Response: obeys rr5 commands(6). Total: 14. ED Course: 00:53 Patient arrived in ED. aa1 00:58 Jeronimo Joiner, RN is Primary Nurse. rr5 01:00 Arm band placed on right wrist. rr5 01:02 Triage completed. rr5 01:19 Linwood Hamilton MD is Attending Physician. levy 01:40 Inserted saline lock: 20 gauge in right antecubital area, using aseptic technique. rr5 Blood collected. 01:50 Patient has correct armband on for positive identification. Placed in gown. Bed in low rr5 position. Call light in reach. Side rails up X2. Adult w/ patient. surveillance system monitor on. Pulse ox on. NIBP on. 01:54 XRAY Chest (1 view) In Process Unspecified. EDMS 02:25 Shauna Shafer MD is Hospitalizing Provider. levy 02:26 CT Head Brain wo Cont In Process Unspecified. EDMS 03:11 No provider procedures requiring assistance completed. Patient admitted, IV remains in rr5 place. intact, No redness/swelling at site. 03:36 Primary Nurse role handed off by Jeronimo Joiner, RN bb Administered Medications: 02:00 Drug: NS 0.9% 1000 ml Route: IV; Rate: 1 bolus; Site: right antecubital; rr5 03:20 Follow up: Response: No adverse reaction; IV Status: Infusion continued upon admission; rr5 IV Intake: 600ml 02:05 Drug: Ativan 0.5 mg Route: IVP; Site: right antecubital; rr5 02:30 Follow up: Response: No adverse reaction rr5 02:23 Drug: Tylenol 650 mg Route: PO; rr5 03:20 Follow up: Response: No adverse reaction rr5 02:24 Drug: Rocephin 1 grams Route: IV; Rate: per protocol; Site: right antecubital; rr5 03:00 Follow up: Response: No adverse reaction; IV Status: Completed infusion; IV Intake: [id number] 02:30 Drug: Ativan 0.5 mg Route: IVP; Site: right antecubital; rr5 03:00 Follow up: Response: No adverse reaction rr5 03:04 Dru.375 grams of (Zosyn 3.375 grams, NS 0.9% 100 ml) Route: IVPB; Infused Over: 60 rr5 mins; Site: right antecubital; 03:34 Follow up: Response: No adverse reaction; IV Status: Completed infusion; IV Intake: rr5 100ml Intake: 03:00 IV: 10ml; Total: 10ml. rr5 03:20 IV: 600ml; Total: 610ml. rr5 03:34 IV: 100ml; Total: 710ml. rr5 Output: 03:20 Urine: 400ml (Voided); Total: 400ml. rr5 Outcome: 02:24 Decision to Hospitalize by Provider. levy 03:11 Admitted to Med/surg accompanied by tech, via stretcher, room 402, with chart, Report rr5 called to padmini 03:11 Condition: stable 03:11 Instructed on the need for admit. 03:33 Patient left the ED. rr5 03:54 Patient left the ED. bb Signatures: Dispatcher [employer] EDDari Patel RN RN aa1 Linwood Hamilton MD MD cha Ballard, Brenda, RN RN Jeronimo Sierra, RN RN rr5
--- NOTE | 2019-06-17 02:27 | EDPHYS ---
Physician Documentation [facility] Name: Jacob Houston Age: 89 yrs Sex: Male : 1930 Arrival Date: 06/17/2019 Time: 00:53 Bed 3 Private MD: ED Physician Linwood Hamilton HPI: 06/17 01:27 This 89 yrs old Male presents to ER via EMS with complaints of DEMENTIA AND levy AMS. 01:27 WORSE X 24 HRS. The patient presents with confusion, decreased mental status, trouble levy concentrating. Onset: The symptoms/episode began/occurred 3 day(s) ago. Possible causes: unknown. Associated signs and symptoms: The patient has no apparent associated signs or symptoms. Onset: The symptoms/episode began/occurred yesterday. Current symptoms: In the emergency department the patient's symptoms are unchanged from the initial presentation. Patient's baseline: Neuro: alert but confused. The patient has experienced similar episodes in the past, multiple times. Historical: - Allergies: 01:00 No Known Allergies; rr5 - Home Meds: 01:00 Xarelto Oral [Active]; Bp medication cannot recall the name [Active]; rr5 - PMHx: 01:00 Dementia; DVT; Alzheimers; Hypertension; rr5 - PSHx: 01:00 Unable to obtain; rr5 - Immunization history:: Adult Immunizations up to date. - Coronavirus screen:: The patient has NOT traveled to [place], [place], or [place] in the past 14 days. - Social history:: Smoking status: unknown Patient uses alcohol, occasionally. Patient/guardian denies using street drugs. - Family history:: not pertinent. - Ebola Screening: : Patient negative for fever greater than or equal to 101.5 degrees Fahrenheit, and additional compatible Ebola Virus Disease symptoms Patient denies exposure to infectious person Patient denies travel to an Ebola-affected area in the 21 days before illness onset. ROS: 01:27 Constitutional: Negative for fever, chills, and weight loss, Eyes: Negative for injury, levy pain, redness, and discharge, ENT: Negative for injury, pain, and discharge, Neck: Negative for injury, pain, and swelling, Cardiovascular: Negative for chest pain, palpitations, and edema, Respiratory: Negative for shortness of breath, cough, wheezing, and pleuritic chest pain, Abdomen/GI: Negative for abdominal pain, nausea, vomiting, diarrhea, and constipation, Back: Negative for injury and pain, : Negative for injury, bleeding, discharge, and swelling, MS/Extremity: Negative for injury and deformity, Skin: Negative for injury, rash, and discoloration, Psych: Negative for depression, anxiety, suicide ideation, homicidal ideation, and hallucinations, Allergy/Immunology: Negative for hives, rash, and allergies, Endocrine: Negative for neck swelling, polydipsia, polyuria, polyphagia, and marked weight changes, Hematologic/Lymphatic: Negative for swollen nodes, abnormal bleeding, and unusual bruising. 01:27 Neuro: Positive for altered mental status, weakness. Exam: :27 Constitutional: This is a well developed, well nourished patient who is awake, alert, levy and in no acute distress. Head/Face: Normocephalic, atraumatic. Eyes: Pupils equal round and reactive to light, extra-ocular motions intact. Lids and lashes normal. Conjunctiva and sclera are non-icteric and not injected. Cornea within normal limits. Periorbital areas with no swelling, redness, or edema. ENT: Nares patent. No nasal discharge, no septal abnormalities noted. Tympanic membranes are normal and external auditory canals are clear. Oropharynx with no redness, swelling, or masses, exudates, or evidence of obstruction, uvula midline. Mucous membranes moist. Neck: Trachea midline, no thyromegaly or masses palpated, and no cervical lymphadenopathy. Supple, full range of motion without nuchal rigidity, or vertebral point tenderness. No Meningismus. Chest/axilla: Normal chest wall appearance and motion. Nontender with no deformity. No lesions are appreciated. Cardiovascular: Regular rate and rhythm with a normal S1 and S2. No gallops, murmurs, or rubs. Normal PMI, no JVD. No pulse deficits. Respiratory: Lungs have equal breath sounds bilaterally, clear to auscultation and percussion. No rales, rhonchi or wheezes noted. No increased work of breathing, no retractions or nasal flaring. Abdomen/GI: Soft, non-tender, with normal bowel sounds. No distension or tympany. No guarding or rebound. No evidence of tenderness throughout. Back: No spinal tenderness. No costovertebral tenderness. Full range of motion. Skin: Warm, dry with normal turgor. Normal color with no rashes, no lesions, and no evidence of cellulitis. MS/ Extremity: Pulses equal, no cyanosis. Neurovascular intact. Full, normal range of motion. Psych: Awake, alert, with orientation to person, place and time. Behavior, mood, and affect are within normal limits. 01:27 Neuro: Orientation: Not oriented to person, place, time, situation, Mentation: slow to respond, Memory: unable to test, Cranial nerves: is grossly normal based on the patient's age, no acute changes, Cerebellar function: unable to test, Motor: moves all fours, Sensation: unable to test, Gait: is unsteady, seizure activity, is not displayed by the patient. Vital Signs: 01:00 BP 140 / 46; Pulse 85; Resp 20; Temp 99.3; Pulse Ox 99% ; Weight 81.65 kg; Height 6 ft. rr5 0 in. (182.88 cm); 02:00 BP 142 / 70; Pulse 115; Resp 25; Temp 99.5; Pulse Ox 95% ; rr5 03:05 BP 138 / 72; Pulse 106; Resp 21; Temp 100; Pulse Ox 96% ; rr5 01:00 Body Mass Index 24.41 (81.65 kg, 182.88 cm) rr5 Organ Coma Score: 01:00 Eye Response: spontaneous(4). Verbal Response: confused(4). Motor Response: obeys rr5 commands(6). Total: 14. 02:00 Eye Response: spontaneous(4). Verbal Response: confused(4). Motor Response: obeys rr5 commands(6). Total: 14. 03:00 Eye Response: spontaneous(4). Verbal Response: confused(4). Motor Response: obeys rr5 commands(6). Total: 14. MDM: 01:19 Patient medically screened. [facility] 01:30 Data reviewed: vital signs, nurses notes, lab test result(s), EKG, radiologic studies, [facility] CT scan, plain films. 06/17 01:26 Order name: Basic Metabolic Panel; Complete Time: 02:20 levy 06/17 01:26 Order name: CBC with Diff; Complete Time: 03:18 [facility] 06/17 01:26 Order name: LFT's; Complete Time: 02:20 [facility] 06/17 01:26 Order name: Magnesium; Complete Time: 02:20 [facility] 06/17 01:26 Order name: NT PRO-BNP; Complete Time: 02:20 [facility] 06/17 01:26 Order name: PT-INR; Complete Time: 02:20 [facility] 06/17 01:26 Order name: Troponin (emerg Dept Use Only); Complete Time: 02:20 [facility] 06/17 01:27 Order name: Influenza Screen (a \T\ B) [facility] 06/17 01:27 Order name: Urine Culture [facility] 06/17 01:27 Order name: Lipase; Complete Time: 02:20 [facility] 06/17 01:27 Order name: Lactate; Complete Time: 02:20 [facility] 06/17 01:27 Order name: Procalcitonin; Complete Time: 03:18 elvy 06/17 02:31 Order name: Manual Differential; Complete Time: 03:18 EDMS 06/17 03:37 Order name: Urine Microscopic Only rr5 06/17 01:26 Order name: XRAY Chest (1 view) [facility] 06/17 01:26 Order name: EKG; Complete Time: 01:28 [facility] 06/17 01:26 Order name: Cardiac monitoring; Complete Time: 01:52 [facility] 06/17 01:27 Order name: EKG - Nurse/Tech; Complete Time: 02:49 [facility] 06/17 01:27 Order name: IV Saline Lock; Complete Time: 01:52 [facility] 06/17 01:27 Order name: Labs collected and sent; Complete Time: 01:52 [facility] 06/17 01:27 Order name: O2 Per Protocol; Complete Time: 01:52 [facility] 06/17 01:27 Order name: O2 Sat Monitoring; Complete Time: 01:52 [facility] 06/17 01:27 Order name: Urine Dipstick-Ancillary (obtain specimen); Complete Time: 03:37 [facility] 06/17 01:27 Order name: CT Head Brain wo Cont levy Administered Medications: 02:00 Drug: NS 0.9% 1000 ml Route: IV; Rate: 1 bolus; Site: right antecubital; rr5 03:20 Follow up: Response: No adverse reaction; IV Status: Infusion continued upon admission; rr5 IV Intake: 600ml 02:05 Drug: Ativan 0.5 mg Route: IVP; Site: right antecubital; rr5 02:30 Follow up: Response: No adverse reaction rr5 02:23 Drug: Tylenol 650 mg Route: PO; rr5 03:20 Follow up: Response: No adverse reaction rr5 02:24 Drug: Rocephin 1 grams Route: IV; Rate: per protocol; Site: right antecubital; rr5 03:00 Follow up: Response: No adverse reaction; IV Status: Completed infusion; IV Intake: [id number] 02:30 Drug: Ativan 0.5 mg Route: IVP; Site: right antecubital; rr5 03:00 Follow up: Response: No adverse reaction rr5 03:04 Dru.375 grams of (Zosyn 3.375 grams, NS 0.9% 100 ml) Route: IVPB; Infused Over: 60 rr5 mins; Site: right antecubital; 03:34 Follow up: Response: No adverse reaction; IV Status: Completed infusion; IV Intake: rr5 100ml Disposition: 06/17/19 02:24 Hospitalization ordered by Shauna Shafer for Inpatient Admission. Preliminary diagnosis are Fever, unspecified, Altered mental status, unspecified, Dementia in other diseases classified elsewhere, Other pneumonia, unspecified organism, Elevated white blood cell count, unspecified, Urinary tract infection, site not specified. - Bed requested for Telemetry/MedSurg (Inpatient). - Status is Inpatient Admission. bb - Condition is Fair. - Problem is new. - Symptoms have improved. Signatures: Dispatcher [employer] EDMS Linwood Hamilton MD MD cha Ballard, Brenda, RN RN bb Garcia, Cindy, RN RN cg Roque, Raymond, RN RN rr5 Corrections: (The following items were deleted from the chart) 02:25 02:24 Hospitalization Ordered by for Inpatient Admission. Preliminary diagnosis is levy Fever, unspecified; Altered mental status, unspecified; Dementia in other diseases classified elsewhere. Bed requested for Telemetry/MedSurg (Inpatient). Status is Inpatient Admission. Condition is Fair. Problem is new. Symptoms have improved. levy 02:40 02:25 06/17/2019 02:24 Hospitalization Ordered by Shauna Shafer MD for Inpatient cg Admission. Preliminary diagnosis is Fever, unspecified; Altered mental status, unspecified; Dementia in other diseases classified elsewhere; Other pneumonia, unspecified organism. Bed requested for Telemetry/MedSurg (Inpatient). Status is Inpatient Admission. Condition is Fair. Problem is new. Symptoms have improved. levy 03:20 02:40 06/17/2019 02:24 Hospitalization Ordered by Shauna Shafer MD for Inpatient levy Admission. Preliminary diagnosis is Fever, unspecified; Altered mental status, unspecified; Dementia in other diseases classified elsewhere; Other pneumonia, unspecified organism. Bed requested for Telemetry/MedSurg (Inpatient). Status is Inpatient Admission. Condition is Fair. Problem is new. Symptoms have improved. 03:33 03:20 06/17/2019 02:24 Hospitalization Ordered by Shauna Shafer MD for Inpatient rr5 Admission. Preliminary diagnosis is Fever, unspecified; Altered mental status, unspecified; Dementia in other diseases classified elsewhere; Other pneumonia, unspecified organism; Elevated white blood cell count, unspecified. Bed requested for Telemetry/MedSurg (Inpatient). Status is Inpatient Admission. Condition is Fair. Problem is new. Symptoms have improved. [facility] 03:37 03:33 06/17/2019 02:24 Hospitalization Ordered by Shauna Shafer MD for Inpatient levy Admission. Preliminary diagnosis is Fever, unspecified; Altered mental status, unspecified; Dementia in other diseases classified elsewhere; Other pneumonia, unspecified organism; Elevated white blood cell count, unspecified. Bed requested for Telemetry/MedSurg (Inpatient). Status is Inpatient Admission. Condition is Fair. Problem is new. Symptoms have improved. rr5 03:54 03:37 06/17/2019 02:24 Hospitalization Ordered by Shauna Shafer MD for Inpatient bb Admission. Preliminary diagnosis is Fever, unspecified; Altered mental status, unspecified; Dementia in other diseases classified elsewhere; Other pneumonia, unspecified organism; Elevated white blood cell count, unspecified; Urinary tract infection, site not specified. Bed requested for Telemetry/MedSurg (Inpatient). Status is Inpatient Admission. Condition is Fair. Problem is new. Symptoms have improved. levy
[2019-06-17 02:30] LABS: Platelet Estimate ADEQ
[2019-06-17 02:31] LABS: Blood Morphology Comment NOTED (NOT SEEN); Hypochromasia 1+; Target Cells 1+; Teardrop Cell 1+
[2019-06-17] MEDS ORDERED: PIPER/TAZO/NS 3.375gm 3.375 GM/100 ML BAG ONE (02:56)
[2019-06-17] MEDS ORDERED: ACETAMINOPHEN 325 MG TABLET PO PRN (03:52)
[2019-06-17] MEDS ORDERED: ALBUTEROL 2.5 MG/3 ML NEB SOL NEB PRN (03:52)
[2019-06-17] MEDS ORDERED: IPRATROPIUM BROM 0.5MG/2.5ML NEB PRN (03:52)
[2019-06-17] MEDS ORDERED: ONDANSETRON 4 MG/2 ML VIAL IV PRN (03:52)
[2019-06-17] MEDS: NA CHLORIDE 0.9% 1,000 ML IV SCH ×3 (03:52→11:52)
[2019-06-17 04:04] LABS: Urine Bacteria 20-50 /HPF (NONE SEEN); Urine Culture Reflex Order NOT NEEDED
[2019-06-17] MEDS ORDERED: PIPERACIL/TAZO 3.375 GM VIAL IV ONE (04:52)
[2019-06-17] MEDS: LORazepam 2 MG/ML VIAL IV PRN ×3 (05:32→23:51)
[2019-06-17] MEDS ORDERED: NA CHLORIDE 0.9% 100 ML IV ONE (05:33)
[2019-06-17] MEDS: PIPER/TAZO/NS 3.375gm 3.375 GM/100 ML BAG IVPB SCH ×4 (05:34→23:28)
[2019-06-17] MEDS: FAMOTIDINE 20 MG/2 ML VIAL IV SCH ×2 (09:06→19:53)
--- NOTE | 2019-06-17 12:05 | RAD REPORT ---
EXAM DESCRIPTION: CT - Head Brain Wo Cont - 06/17/2019 6:08 am CLINICAL HISTORY: Dizziness;Confused TECHNIQUE: Multiple axial CT images of the brain were performed followed by sagittal and coronal rec onstructed images. The CT study is performed according to ALARA (as low as reasonably achievable) or ALARA/IMAGE GENTLY, with automatic adjustment of mA and/or kV according to patient size. Performed on: 06/17/2019 at 2:02 AM COMPARISON: 11/18/2018. FINDINGS: There is no evidence of mass, acute mass effect or midline shift. There are no acute extra -axial fluid collections. There is no evidence of acute intracranial hemorrhage. The cerebral sulci and ventricles are prominent consistent with age-related volume loss. There are scattered areas of decreased attenuation within the subcortical and periventricular white m atter most likely due to mild chronic microangiopathy. There is mild mucosal thickening of the paranasal sinuses. The mastoid air cells are clear. The orbital contents are grossly unremarkable. No acute osseous abnormalities are identified. No focal soft tissue abnormalities are identified. IMPRESSION: 1. There is no evidence of acute intracranial pathology. 2. Age-related cerebral volume loss with findings compatible with mild chronic microangiopathy. Electronically signed by: Lilly Farias DO 06/17/2019 2:36 AM COATING MACHINE [employer]EDER Due to temporary technical issues with the PACS/Fluency reporting system, reports are being signed by the in house radiologist as a courtesy to ensure prompt reporting. The interpreting radiologist is f ully responsible for the content of the report.
--- NOTE | 2019-06-17 12:55 | RAD REPORT ---
EXAM DESCRIPTION: Joel Single View06/17/2019 1:51 am CLINICAL HISTORY: cough COMPARISON: 2017 FINDINGS: The lungs appear clear of acute infiltrate. The heart is normal size IMPRESSION: No acute abnormalities displayed
[2019-06-17] MEDS: GABAPENTIN 100 MG CAP PO SCH ×2 (14:00→19:54)
[2019-06-17] MEDS: NACHLORIDE 0.45% 1,000 ML IV SCH (15:05)
[2019-06-17] MEDS ORDERED: ACETAMINOPHEN 650MG/RECT SUPP PR PRN (20:32)
[2019-06-17] MEDS ORDERED: ACETAMINOPHEN 650MG/RECT SUPP PR ONE (20:38)
[2019-06-17] MEDS ORDERED: LORazepam 2 MG/ML VIAL IV ONE (20:40)
--- NOTE | 2019-06-18 00:58 | HP ---
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 He has been cesar ing with his and his family, doing fairly well until yesterday. He started complaining of being cold, although said that the house was warm and then he was feeling tired, fatigued, weak, and then she noticed that even his mentality and cognition is different and worse to her than his baselin e. She brought him to the emergency room. His workup in the emergency room disclosed that the patie nt has cystitis. Urinary tract infection with possible sepsis from that with increased prolactin wou ld have explained his mental status change acutely. The patient himself would not complain at this t cheryl to do a review of systems; however, he has not been noticed to have any cough or increased shortn ess of breath or any other complaints. Past Medical History: 1.Hypertension. 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 4.Chronic renal insufficiency from hypertension. 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 Social History: No smoking, alcohol, or drug abuse history. Family History: Noncontributory. Medications: Include Xarelto 20 mg p.o. daily, sulbutiamine 200 mg 2 tablets daily, gabapentin 100 m g p.o. t.i.d., amlodipine 10 mg p.o. daily. Allergies: NO KNOWN DRUG ALLERGIES. Physical Examination: General: Patient in no acute distress. Vital Signs: His blood pressure is 155/65, pulse 89, temperature 98.8. Heart: Regular rate and rhythm. Chest: Clear to auscultation. Abdomen: Soft, nontender. No hepatosplenomegaly. Bowel sounds are normoactive. Extremities: No edema. No cyanosis. Peripheral pulses are felt. Neurologic: Patient is alert. Good eye contact, but would not answer questions properly due to his baseline dementia along with the acute mental status change. Diagnostic Data: Chest x-ray, no acute pathology. Head CT, no acute pathology. White cell count 15 .4, hemoglobin 11.8, hematocrit 35.3, and platelets 168. Chemistry: Sodium 147, potassium 3.6, chlo ride 117, BUN 30, creatinine 1.21, GFR 56. Troponin 0.07 . Prolactin 2.721. Urinalysis s howed white cell count 10-20. Urine culture is pending. Influenza A and B screening negative and pu lse oximetry on room air is more than 90%. Assessment/plan: 1.Likely a cystitis with bacteremia versus sepsis caused acute mental status change. 2.Hypernatremia with some volume depletion likely from patient not being offered as much fluid and h e is not drinking as much fluids at home. 3.Increased troponin. 4.Chronic medical illnesses. We will go ahead and put the patient on IV Zosyn, antibiotic pending c ultures. We will go ahead and change his IV fluid to half-normal saline and have asked Cardiology to see the patient for increased troponin. Continue the rest of his home medications. Look orders for details. MFS/MODL Voice ID: [id number]
[2019-06-18] MEDS: NACHLORIDE 0.45% 1,000 ML IV SCH ×5 (02:13→23:17)
[2019-06-18] MEDS: LORazepam 2 MG/ML VIAL IV PRN ×4 (03:45→22:01)
[2019-06-18] MEDS: MORPHINE 4 MG/ML SYR IV PRN (04:15)
[2019-06-18] MEDS: PIPER/TAZO/NS 3.375gm 3.375 GM/100 ML BAG IVPB SCH ×4 (05:18→23:18)
[2019-06-18 06:14] LABS: Absolute Lymphocytes (CBC) 0.6 K/uL (0.7-4.9); Basophils % 0.4 % (0-1.3); Hematocrit 35.8 % (39.6-49.0); Lymphocytes % 4.6 % (15.3-44.8); MPV 10.2 fL (7.6-11.3); RBC Red Blood Cell Count 3.82 M/uL (4.33-5.43)
[2019-06-18 06:22] LABS: Potassium 3.6 mmol/L (3.5-5.1)
--- NOTE | 2019-06-18 06:26 | EKG ---
Test Date: 2019-06-17 Test Time: 02:30:23 [employer] Installer: JULIAN MEASUREMENT RESULTS: Intervals: Rate: 101 NH: 184 QRSD: 84 QT: 346 QTc: 448 [place]: P: 84 NH: 184 QRS: 7 T: -53 INTERPRETIVE STATEMENTS: Sinus tachycardia Nonspecific ST abnormality Abnormal ECG Compared to ECG 02/12/2017 11:20:51 ST (T wave) deviation now present Sinus bradycardia no longer present Electronically Signed On 06-18-19 06:26:20 [employer] SERV[employer] CONSULTANT by Rafa Yoder
[2019-06-18] MEDS: FAMOTIDINE 20 MG/2 ML VIAL IV SCH ×2 (08:55→22:00)
[2019-06-18] MEDS: AMLODIPINE 10 MG TAB PO SCH (08:57)
[2019-06-18] MEDS: GABAPENTIN 100 MG CAP PO SCH ×3 (08:57→21:00)
[2019-06-18] MEDS: [UNRECOGNIZED DRUG - OTHER] PO SCH (08:57)
[2019-06-18] MEDS: RIVAROXABAN 20 MG TABLET PO SCH (08:58)
--- NOTE | 2019-06-18 11:07 | RAD REPORT ---
EXAM DESCRIPTION: RAD - Chest Single View - 06/18/2019 6:56 am CLINICAL HISTORY: Chest Pain Chest pain. COMPARISON: Chest Single View dated 06/17/2019; Chest Single View dated 02/12/2017; CHEST PA AND LAT 2 VIEW dated 04/19/2012; CHEST SINGLE VIEW dated 02/11/2012 FINDINGS: Portable technique limits examination quality. Mild interstitial pulmonary edema seen. The heart is moderately enlarged in size. No displaced fractu res. IMPRESSION: Mild CHF versus volume overload pattern.
[2019-06-18] MEDS ORDERED: HALOPERIDOL LACT 5 MG/ML INJ IV PRN (12:58)
[2019-06-18 13:16] LABS: Arterial Blood Carboxyhemoglob 1.2 % (0-1.5); Blood Gas Oxyhemoglobin 94.5 % (94-97); Blood O2 Saturation 96.4 % (92-98.5)
--- NOTE | 2019-06-18 13:54 | PN ---
Subjective: Patient is clinically stable. Objective: Vital Signs: His blood pressure is 150/75, pulse 70, temperature 97.7. Heart: Regular rate and rhythm. Chest: Clear to auscultation. Abdomen: Soft, benign. Extremities: No edema. No cyanosis. Peripheral pulses are felt. Neurologic: Alert. Patient with dementia with eye contact. Laboratory Data: White cell count dropped down to 12.8, hemoglobin 12, hematocrit 35, platelets 139, BUN 23, creatinine 0.98, GFR improved to 72. Sodium dropped down to 144. BNP 1164. Assessment: 1.Acute mental status change. I think the patient is resolving back to his baseline. This is impro vement. 2.Cystitis with organ infection and sepsis, improving. Microbiology and result are pending. We leonor l continue current antibiotics. 3.Hypernatremia, improved. Kidney functions improved. Plan: Pending Cardiology input on the increased troponin. We will continue current antibiotics and treatment. Expect discharge in 1 to 2 days. MFS/MODL Voice ID: [id number] Report ID: [id number]
--- NOTE | 2019-06-18 14:04 | RAD REPORT ---
EXAM DESCRIPTION: RAD - Chest Single View - 06/18/2019 1:36 pm CLINICAL HISTORY: substernal retractions Chest pain. COMPARISON: Chest Single View dated 06/18/2019; Chest Single View dated 06/17/2019; Chest Single View da andre 02/12/2017; CHEST PA AND LAT 2 VIEW dated 04/19/2012 FINDINGS: Portable technique limits examination quality. Bilateral interstitial lung opacities are again noted, appearing unchanged. Mild pulmonary edema or i nterstitial pneumonia are possibilities and can be clinically correlated. The heart is mildly enlarge d in size. No displaced fractures. IMPRESSION: Stable chest since 06/18/2019.
--- NOTE | 2019-06-18 15:59 | CON ---
Identification: 89-year-old man. Reason For Consult: Elevated troponin. History Of Present Illness: Mr. Houston was brought to the hospital by family. He had a sudden or abr upt change in his mental status. He is found to have signs of septicemia with elevated procalcitonin levels, elevated white blood cell count, left shift and pyuria. Since being treated with antibiotic s, there has been some improvement in his part of his admission process. He has had several troponin levels drawn. A total of 4 have been drawn, they are all virtually the same 0.05, 0.07, and 0.07 an d another 0.07. The patient is not having chest pain, but he has to be confused and disoriented to t rust history. No mention of chest pain was made over the last few days. 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 He does not use tobacco, alcohol, or drugs now at all, although we are not aware of any history of heart surgeries or stents or heart attacks or strokes. Physical Examination: General: The patient remains obtunded in part from sedatives. He was very agitated overnight and re ceived a lot of benzodiazepines. Lungs: Clear. Heart: Unremarkable. There is no carotid bruit. Distal pulses palpable, but diminished. Mild cesilia a. Diagnostic Studies: An electrocardiogram shows sinus tachycardia, nonspecific ST abnormality. Impression: This is not an acute coronary syndrome. I would not change anything that we are dealing to Dr. Shafer's orders written very likely, which are resulted in clearing his infection and becomi ng more like his previous self. I would not recommend doing a stress test or an echo or heart catheteri zation. MATHEUS/MODL Voice ID: [id number] Report ID: [id number]
[2019-06-19] MEDS: LORazepam 2 MG/ML VIAL IV PRN ×2 (01:57→13:17)
[2019-06-19] MEDS: MORPHINE 4 MG/ML SYR IV PRN (02:42)
[2019-06-19 04:44] VITALS: BMI 26.0
[2019-06-19 04:47] LABS: Absolute Lymphocytes (CBC) 0.8 K/uL (0.7-4.9); Basophils % 0.4 % (0-1.3); Hematocrit 33.8 % (39.6-49.0); Lymphocytes % 8.5 % (15.3-44.8); MPV 9.7 fL (7.6-11.3); RBC Red Blood Cell Count 3.59 M/uL (4.33-5.43)
[2019-06-19 04:56] LABS: Potassium 3.6 mmol/L (3.5-5.1)
[2019-06-19] MEDS: NACHLORIDE 0.45% 1,000 ML IV SCH ×2 (05:17→12:20)
[2019-06-19] MEDS: PIPER/TAZO/NS 3.375gm 3.375 GM/100 ML BAG IVPB SCH ×2 (05:17→14:38)
[2019-06-19] MEDS: GABAPENTIN 100 MG CAP PO SCH ×3 (08:24→21:00)
[2019-06-19] MEDS: RIVAROXABAN 20 MG TABLET PO SCH (08:25)
[2019-06-19] MEDS: FAMOTIDINE 20 MG/2 ML VIAL IV SCH ×2 (08:25→22:37)
[2019-06-19] MEDS: [UNRECOGNIZED DRUG - OTHER] PO SCH (08:25)
[2019-06-19] MEDS: AMLODIPINE 10 MG TAB PO SCH (08:25)
[2019-06-19] MEDS ORDERED: MORPHINE 2 MG/ML SYR IV PRN (08:31)
--- NOTE | 2019-06-19 15:13 | PN ---
Subjective: The patient this morning is more cooperative and less agitated. Has good eye contact. Off and on he will know some family members. Objective: Vital Signs: Blood pressure 150/80, pulse 76, temperature 98.0. Heart: Regular rate and rhythm. Chest: Clear to auscultation. Abdomen: Soft, benign. Extremities: No edema. No cyanosis. Peripheral pulses are felt. Neurological: Alert and with good eye contact. Moves all extremities. Laboratory Data: White cell count dropped down to 9.2. The rest of the CBC is noted. BUN 17, creat inine 0.88, GFR 82. Chest x-ray, mild CHF versus consolidation or pneumonia. Assessment And Plan: 1.Patient's acute mental status change is gradually getting better. 2.Cystitis and possible touch of pneumonia, responding to current antibiotic. We will continue that . 3.Agitation and confusion and dementia. Patient on Ativan, keeping in restful. Will also ask [facility] for discharge planning. The patient lives with his who is also elderly. 4.Hyponatremia, corrected. We will change his IV fluid rate down to 60 mL/h. Look orders for carmen mosquera. MFS/MODL Voice ID: [id number] Report ID: [id number]
[2019-06-19] MEDS ORDERED: IPRATROPIUM BROM 0.5MG/2.5ML NEB PRN (16:00)
[2019-06-19] MEDS ORDERED: ALBUTEROL 2.5 MG/3 ML NEB SOL NEB PRN (16:00)
[2019-06-20] MEDS: PIPER/TAZO/NS 3.375gm 3.375 GM/100 ML BAG IVPB SCH ×3 (00:11→17:00)
[2019-06-20] MEDS: NACHLORIDE 0.45% 1,000 ML IV SCH (04:41)
[2019-06-20] MEDS: FAMOTIDINE 20 MG/2 ML VIAL IV SCH ×2 (08:02→19:26)
[2019-06-20] MEDS: [UNRECOGNIZED DRUG - OTHER] PO SCH ×2 (09:00→17:16)
[2019-06-20] MEDS: AMLODIPINE 10 MG TAB PO SCH (12:33)
[2019-06-20] MEDS: RIVAROXABAN 20 MG TABLET PO SCH (12:33)
[2019-06-20] MEDS: GABAPENTIN 100 MG CAP PO SCH ×3 (12:34→19:26)
[2019-06-20] MEDS: LORazepam 2 MG/ML VIAL IV PRN (19:28)
--- NOTE | 2019-06-20 21:34 | PN ---
Subjective: Patient is doing well, sitting by the bedside. No new complaint. Objective: Vital Signs: Blood pressure 130/70, pulse 66, temperature 97.7. Room air pulse oximetry 96%. Heart: Regular rate and rhythm. Chest: Clear to auscultation. Abdomen: Soft, benign. Neurological: Alert, oriented, grossly intact. Assessment/plan: Bibasilar pneumonia, likely because the patient has acute mental status change and confusion, is responding to current antibiotics and is totally in his baseline cognition and mentalit y. Urinalysis and microbiology showed mixed kita. The rest of his medical problems stable. We leonor l go ahead and continue current treatment. Discussed with the family and they would like to have him have Home Health. We will go ahead and order that and expect discharge in the morning. Look orders for details. MFS/MODL Voice ID: [id number] Report ID: [id number]
[2019-06-21] MEDS: PIPER/TAZO/NS 3.375gm 3.375 GM/100 ML BAG IVPB SCH ×2 (01:00→08:00)
[2019-06-21] MEDS: NACHLORIDE 0.45% 1,000 ML IV SCH ×2 (05:46→12:49)
[2019-06-21 07:11] VITALS: O2SAT 97
[2019-06-21] MEDS: FAMOTIDINE 20 MG/2 ML VIAL IV SCH (09:01)
[2019-06-21] MEDS: RIVAROXABAN 20 MG TABLET PO SCH (09:01)
[2019-06-21] MEDS: AMLODIPINE 10 MG TAB PO SCH (09:01)
[2019-06-21] MEDS: GABAPENTIN 100 MG CAP PO SCH ×2 (09:01→12:48)
[2019-06-21] MEDS: [UNRECOGNIZED DRUG - OTHER] PO SCH (09:02)
[2019-06-21 12:47] VITALS: TEMP 97.2
[2019-06-21 16:48] VITALS: BP 158/70
--- NOTE | 2019-06-22 03:39 | DS ---
Date of Discharge: 06/21/2019 History: -flsl-thb male who was admitted to the hospital because of acute mental status change and fatigue and weakness. Initially thought to be from urosepsis, however workup in the hospital showed that the patient has bibasilar pneumonia. Past Medical History: As per admit note. Social History: As per admit note. Family History: As per admit note. Medications: As per admit note. Allergies: PER ADMIT NOTE. Physical Examination: As per admit note. Diagnostic Data: As per admit note. Hospital Course: The patient was admitted to the hospital. He was put on Zosyn and IV antibiotic. I put him on half normal saline to correct his hypernatremia, which gradually improved and corrected down to a sodium of 142. The patient on the current regimen of antibiotics and IV fluids started recovering and today he is sitting by the bedside, is eating and combatting well. The patient also knows my name. At this time with the patient doing well , it was thought to send him home on Z-Abdias 250 mg and with home health for OT and PT. It is worth mentioning that during his hospital stay, Cardiology was consulted because of an increased troponin, which Cardiology thought that was not coronary. Because of dehydration and hypernatremia, the patient has a slight elevation in his troponin. His hypernatremia as mentioned corrected, his acute renal failure with that have corrected, and was cortical prerenal. At this time, we thought the patient is stable enough to be discharged as mentioned with home health and Z-Abdias and to continue his home medicines. Look discharge orders for details. MFS/MODL Voice ID: [id number] Report ID: [id number] JESSICA
== END 2019-06-21 16:41 | disposition home health service (06) | DRG 871 ==
LOC: ER 00:49 → ERHOLD 02:49 → 4TH 03:09
PROVIDERS: ADMIT Internal Medicine; ATTEND Internal Medicine
DX: A41.9 Sepsis, unspecified organism (principal); J18.9 Pneumonia, unspecified organism; N17.0 Acute kidney failure with tubular necrosis; N30.00 Acute cystitis without hematuria; E87.0 Hyperosmolality and hypernatremia; G93.40 Encephalopathy, unspecified; R65.20 Severe sepsis without septic shock; F03.90 Unspecified dementia, unspecified severity, without behavioral disturbance, psychotic disturbance, mood disturbance, and anxiety; F10.21 Alcohol dependence, in remission; K70.30 Alcoholic cirrhosis of liver without ascites; R79.89 Other specified abnormal findings of blood chemistry
CPT/HCPCS: 36415; 70450; 71045; 80048; 80076; 81015; 82805; 83605; 83690; 83735; 83880; 84145; 84484; 85025; 85610; 87086; 87088; 87804; 92610; 93005; 94640; 94760; 96365; 96367; 96375; 99285; J0696; J1630; J2543; J7030